=== PATIENT | female | born 1945 | race Caucasian/White ===

== ENCOUNTER 2020-09-27 11:58 | Inpatient (IN) | payer MEDICARE, OTHER ==
[~2020-09-27 11:58] MED LIST: LIDOCAINE 1% 10 ML VIAL INJ ONE; PROPOFOL 200 MG/20 ML VIAL IV ONE
[2020-09-27] MEDS ORDERED: SODIUM CHLORIDE 0.9% 1000ML 1,000 ML IVS ONE (13:14)
--- NOTE | 2020-09-27 13:19 | ED.PDOC ---
History of Present Illness - General Chief Complaint: GI Problem Stated Complaint: vomiting,weakness Time Seen by Provider: 09/27/20 12:50 Source: patient, family Exam Limitations: no limitations - History of Present Illness Initial Comments: 2 WKS EMESIS, ANOREXIA, WAKNESS, DEHYDRATED. POS FLATUS YESTERDAY BUT NONE TODAY. H/O MARI-EN-Y GASTRIC BYPASS 8 YRS AGO AND HAD A LOT OF COMPLICATIONS FROM IT. I SPOKE WITH DR. CORTES TODAY AND HE IS CONCERNED COULD BE BOWEL OBSTRUCTION. NO NAUSEA. NO ABD PAIN. NO APPETITE. HAD ABD PAIN SEP 23, BUT NONE SINCE. VOMITING BUT NO NAUSEA. IF SHE EATS, IT TRIGGERS EMESIS. INCREASING WEAKNESS FROM HER DECREASED PO. IS ABLE TO DRINK SIPS OF WATER. AT BASELINE, IS VERY HEALTHY. WORKS [employer] M[employer]. DR. CORTES'S [id number]-[id number]. Timing/Duration: constant Severity: moderate Improving Factors: nothing Worsening Factors: eating Associated Symptoms: loss of appetite, nausea/vomiting, weakness Allergies/Adverse Reactions: Allergies NO KNOWN ALLERGY Allergy (Verified 09/27/20 12:21) Home Medications: Ambulatory Orders Cephalexin 500 mg PO QID 09/27/20 Hydrochlorothiazide 25 mg PO DAILY 09/27/20 amLODIPine BESYLATE [Norvasc] 5 mg PO BID 09/27/20 tiZANidine [Zanaflex] 4 mg PO TID PRN 09/27/20 Review of Systems - Review of Systems Constitutional: Denies: chills, fever EENTM: States: no symptoms reported Respiratory: Denies: cough, short of breath Cardiology: Denies: chest pain, palpitations Gastrointestinal/Abdominal: States: vomiting. Denies: abdominal pain, constipation, diarrhea, nausea Genitourinary: Denies: dysuria, frequency Musculoskeletal: Denies: back pain, neck pain Neurological: States: no symptoms reported Endocrine: States: no symptoms reported Hematologic/Lymphatic: States: no symptoms reported All other Systems: Reviewed and Negative Past Medical History (General) - Patient Medical History Hx Stroke: No Hx Congestive Heart Failure: No Hx Hypertension: Yes Hx Diabetes: No Surgical History: gastric bypass, Hysterectomy - Vaccination History Hx Influenza Vaccination: Yes Hx Pneumococcal Vaccination: Yes - Social History Hx Tobacco Use: No Family Medical History - Family History Mother Family History: Unknown Living Status: Unknown Physical Exam - Physical Exam General Appearance: Alert, Other - FATIGUED APPEARANCE. Eye Exam: bilateral normal Ears, Nose, Throat: normal ENT inspection, normal pharynx Neck: full range of motion, normal inspection Respiratory: lungs clear, normal breath sounds, no respiratory distress, no accessory muscle use Cardiovascular/Chest: regular rate, rhythm, no murmur Peripheral Pulses: radial,right: 1+, radial,left: 1+ Gastrointestinal/Abdominal: normal bowel sounds - IN ALL 4 QUADRANTS. , soft, no organomegaly, no pulsatile mass, other - MILDLY TTP IN EPIGASTRIC. Rectal Exam: deferred Back Exam: normal inspection, no CVA tenderness Extremity: normal inspection, no pedal edema, no calf tenderness Neurologic: alert, normal mood/affect, oriented x 3 Skin Exam: normal color, warm/dry Lymphatic: no adenopathy Progress - Progress Progress: 09/27/20 15:39 CT PENDING. ABD PAIN RETURNED SINCE DRINKING CONTRAST (NO NAUSEA) THUS WILL GIVE REPEAT DIALUDID 0.5 MG DOSE. 09/27/20 19:53 PT ADMITTED TO [facility] AND DR. ARORA GEN SURGERY IS CONSULTING. WILL NEED ADMISSION FOR IVF, PAIN CONTROL. 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 NO OBSTRUCTION. ANEMIA - HGB 9.7 (WAS 10.7 SEP 23). COVID NEG. THANK YOU, DR. CORTES, DR. ARORA, AND STEPHANIE NAVARRETE, FOR FACILITATING AND ACCEPTING FURTHER CARE OF OUR PATIENT. 09/27/20 19:58 - Results/Orders Results/Orders: SINCE DRANK THE CONTRAST, SHE IS NOW HAVING ABD PAIN. GIVING DILAUDID. Departure - Departure Clinical Impression: Fistula of small intestine, Anorexia, Weakness, Dehydration, H/O gastric bypass Anemia Qualifiers: Anemia type: unspecified type Qualified Code(s): D64.9 - Anemia, unspecified Emesis Qualifiers: Vomiting type: unspecified Vomiting Intractability: non-intractable Nausea presence: without nausea Qualified Code(s): R11.11 - Vomiting without nausea Disposition: Admit Patient Condition: Good Departure Forms: ED Discharge - Pt. Copy, Patient Portal Self Enrollment Referrals: Alan Gonzales MD [Primary Care Provider] - 1-2 Weeks Home Medications: Ambulatory Orders Cephalexin 500 mg PO QID 09/27/20 Hydrochlorothiazide 25 mg PO DAILY 09/27/20 amLODIPine BESYLATE [Norvasc] 5 mg PO BID 09/27/20 tiZANidine [Zanaflex] 4 mg PO TID PRN 09/27/20 Decision To Admit - Decistion To Admit Decision to Admit Reason: Admit from ER Decision to Admit Date: 09/27/20 Decision to Admit Time: 18:00
[2020-09-27] MEDS ORDERED: HYDROmorphone HCL INJ 2 MG/ML VIAL IV ONE ×3 (14:04→20:09)
--- NOTE | 2020-09-27 17:24 | CT ---
EXAM DESCRIPTION: Abdomen/Pelvis w/Contrast: Computed Tomography. CLINICAL HISTORY: 75 years Female 2 WKS EMESIS, ANOREXIA. NO FLATUS. GASTRIC BYPASS. COMPARISON: None. TECHNIQUE: Spiral-axial scans at 5 x 5 mm intervals through the abdomen and pelvis, after nonionic IV contrast and water-soluble oral contrast. Coronal and sagittal 2.0 mm reconstructions. No delayed scans. No adverse reactions. Total Exam DLP: 1013 mGy-cm. This exam was performed according to our departmental dose-optimization program which includes automated exposure control, adjustment of the mA and/or kV according to patient size and/or use of iterative reconstruction technique; to reduce radiation dose to as low as reasonably achievable (ALARA). FINDINGS: Lung bases and pleura: Bilateral posterior dependent basilar atelectasis. No acute pleural process or consolidation. Liver, Stomach, Spleen, Adrenal Glands: Small hiatal hernia. Circumferential suturing around the superior fundus with oral contrast in the lumen. This communicates with a loop of jejunum inferiorly and anteriorly to the upper fundus and this loop of small bowel remains adjacent to the anterior anterior abdominal wall. Minimal oral contrast enters the fluid-filled moderately distended inferior fundus and body of the stomach (pouch) which communicates with the antrum and pylorus. Air-fluid level in the duodenal bulb. A segment of jejunum containing dense oral contrast may be communicating with the inferior aspect of the distended pouch, via possible fistula. This segment also communicates with the duodenum. The proximal jejunum from the bypass does not contain a significant amount of oral contrast. It is not obstructed. The jejunal segment with dense oral contrast, does not appear obstructed and communicates with the remainder of the jejunum, also demonstrated by dense oral contrast, which continues through the jejunum into the ileum, ileocecal valve, cecum, and ascending colon. Pancreas, Gallbladder, Ducts: Gallbladder slightly distended with dependent, minimally radiodense stones. Common bile duct not distended. Fatty pancreas with small cystlike region 1 cm in the pancreatic head. Pancreatic duct not dilated. No inflammatory changes around the pancreas. Kidneys and Ureters: Unremarkable. Mesentery: No ascites, no fluid in the pelvic cul-de-sac or other free fluid and no free intraperitoneal air. No fatty stranding. Aorta: Moderate atherosclerotic calcifications proximally 2.0 x 2.1 cm, and distal luminal narrowing. Calcifications in narrowing extending to the proximal common iliac arteries bilaterally. Minimal atherosclerotic calcification in the major branch vessels. Small Bowel: See above. No significant distention in the mid or distal jejunum or ileum. Terminal Ileum/Cecum: Normal caliber of the terminal ileum which contains oral contrast. Cecum oral contrast and gas in the minimally distended cecum. Colon: Ascending colon minimally distended by gas fecal material and oral contrast with distended air-fluid level in the hepatic flexure. The transverse colon distal to this distended hepatic flexure is decompressed with intermittent minimal gaseous distention. Minimal oral contrast in the remainder of the colon which is decompressed. Moderate redundancy of the sigmoid colon with no complications. Pelvic Organs: Urinary bladder is distended with no radiodense stones. Vaginal cuff unremarkable. No free fluid in the pelvis. No fatty stranding or mass. Spine and Bony Pelvis: Spondylosis extensive throughout the disc space at almost every lumbar level except for L5-S1 on the right, and spondylosis also in the included thoracic segments with levoscoliosis. Decreased bone density. Bilateral SI joint arthrosis and bilateral SI joint arthrosis. Abdominal Wall/Back Soft Tissues: Umbilical diastases not containing bowel. Small inguinal nodes bilaterally. IMPRESSION: 1. The distal fundus and the remainder of the stomach are distended by fluid with minimal oral contrast. The proximal fundus is anastomosed to a loop of jejunum, but a second segment of jejunum is partially distended with oral contrast. No obstruction is seen but there is question of a fistula. No perforation, no abscess, no free air or free fluid. The exact nature of this complication may be better evaluated by fluoroscopic guided upper GI contrast examination and small bowel follow-through. Consider surgical consultation. 2. Distention of the hepatic flexure of the colon with contrast and gas with transition point to decompressed proximal transverse colon. No definite mass, but consider follow-up barium enema and/or colonoscopy. 3. Cholelithiasis. Focal dilated pancreatic duct in the pancreatic head versus small pseudocyst. No enlargement of the pancreas or peripancreatic masses or inflammatory changes. CRITICAL COMMUNICATION: The critical value was communicated directly by Dr. Ibarra via phone call, with Dr. Ernie Schaefer, at approximately 1621 hours, on September 27, 2020. Electronically signed by: Pancho Ibarra MD 09/27/2020 5:22 PM NURSING SURGICAL SERVICES DIRECTOR
--- NOTE | 2020-09-27 19:57 | HP ---
SUPERVISING PHYSICIAN: Justice Gorman MD CHIEF COMPLAINT: Abdominal pain. HISTORY OF PRESENT ILLNESS: Ms. Miranda is a 75 year-old female who has a history of a previous Delmis-en-Y gastric bypass 8 years previously and reportedly multiple complications since the surgery. She has been having on-and-off abdominal pains in the epigastric region with associated emesis and some anorexia and weakness. She has lost 38 pounds since January unintentionally. She notes that when she initially had her gastric bypass, she lost 135 pounds and only gained about 20 pounds back. She endorses that when she eats it triggers emesis and she has had increasing weakness due to her decreased p.o. intake. She was referred from the clinic by Dr. Schaefer for further workup with concerns for possible bowel obstruction. Her CT in the Emergency Room with oral contrast showed concerns for a possible fistula with recommendation of surgical consultation with a possible upper GI series. Dr. Heredia was consulted at that point and Dr. Heredia and Dr. Schaefer seen in consultation. The patient is going to be admitted with a requested consultation with Dr. Petit, GI specialist, who is planning to do an EGD in the morning. She is admitted in stable condition. PAST MEDICAL HISTORY: 1. Hypertension. PAST SURGICAL HISTORY: 1. Delmis-en-Y gastric bypass with multiple complications 8 years previously. 2. Hysterectomy. CURRENT MEDICATIONS: 1. Norvasc 5 mg b.i.d. 2. Zanaflex 4 mg b.i.d. 3. Hydrochlorothiazide 25 mg daily. ALLERGIES: No known drug allergies. FAMILY HISTORY: Noncontributory to current admission. SOCIAL HISTORY: The patient is , currently works as a [place] in [employer] in [place], [place]. She has no history of drinking alcohol or utilizing tobacco. REVIEW OF SYSTEMS: CONSTITUTIONAL: Aguila fevers, chills, has had some associated general malaise and unintentional weight loss, reportedly 38 pounds since January 2020. HEENT: Denies headaches. vision changes, sore throat. nasal congestion. CHEST: Denies wheezing or coughing, shortness of breath. HEART: Denies chest pain, palpitations, or syncopal episodes. ABDOMEN: As noted in history of present illness. Denies diarrhea or constipation, does have associated emesis but no actual nausea. GENITOURINARY: Denies dysuria, hematuria or polyuria. MUSCULOSKELETAL: Chronic back pain, denies neck pain. SKIN: Denies lesions, rashes, moles or unexplained changes. NEUROLOGIC: Denies ataxia, seizures, paresthesias or other focal neurological or sensory deficits. HEMATOLOGICAL: Denies unexplained bleeding, easy bruising or transfusion reactions. PHYSICAL EXAMINATION: VITAL SIGNS: Temperature 97.7, pulse 83, blood pressure 142/65, respirations 16, oxygen saturation 96% on room air at rest. GENERAL: The patient looks to be in no acute distress. She just got some Dilaudid, she is resting comfortably. She does look fatigued. HEENT: Tympanic membranes are clear bilaterally. Oropharynx is pink, moist without lesions. NECK: Full range of motion, no jugular venous distention, supple. CHEST: Lungs clear to auscultation bilaterally without rhonchi, rales, or wheezes. CARDIOVASCULAR: Regular rate and rhythm without appreciable murmurs, gallops, or rubs. ABDOMEN: Soft with tenderness noted on palpation to the epigastric region. No peritoneal signs, no rebound tenderness, no point tenderness. BACK: No CVA or vertebral tenderness. EXTREMITIES: Without cyanosis, clubbing, or edema. NEUROLOGIC: She is alert and oriented x 3. Cranial nerves II through XII grossly intact. SKIN: Warm, pink and dry. RECTAL: Exam deferred. LABORATORY: White count 11,000, hemoglobin 9.7, hematocrit 28.3, platelet count 550,000. Differential shows early left shift. Chemistries show sodium 134, potassium 3.3, creatinine 0.97, lactic acid normal 0.9. Liver functions showing to be within normal limits. Lipase less than 18. Urinalysis pending. MICROBIOLOGY: Nasal swab for Covid was negative. RADIOLOGY: Abdomen/pelvis CV with oral contrast shows possible fistula of the gastric bypass with some contrast in the jejunal segment, no obvious obstruction or abscess. ASSESSMENT: 1. Acute on chronic abdominal pain with concerns for complications of her gastric bypass with a developing fistula with noted oral contrast within the jejunal segment during a CT study with no obvious obstruction or abscess formation with a surgical and GI consultation pending. 2. Hypertension, controlled. 3. History of Delmis-en-Y gastric bypass 8 years previous with multiple complications. 4. Mild leukocytosis with no obvious signs of infection, probably demarginalization secondary to response and ongoing emesis. 5. Mild electrolyte imbalance including a hypokalemia, hyponatremia, probably due to poor oral intake and recent emesis. 6. Normocytic/normochromic anemia with patient having a history of gastric bypass. PLAN: Ms. Miranda is going to be admitted for both a surgical consultation and GI consultation. Dr. Heredia has seen the patient in the Emergency Room. Dr. Petit has requested EGD to be done in the morning. The OR crew has been notified of this. She will be kept overnight. Labs have been ordered. She will have Dilaudid for pain control. Zofran for any nausea. She will be on IV fluids. I would anticipate her length of stay to be at least 2 to 3 days. Until we can transition patient to outpatient management, we will continue to monitor and treat as needed. #[id number] [facility]
[2020-09-27] MEDS ORDERED: DEX 5% W/NACL 0.45% 1000ML 1,000 ML IVS PRN (20:14)
[2020-09-27] MEDS ORDERED: ONDANSETRON INJ 4 MG/2 ML VIAL IV PRN (20:14)
[2020-09-27] MEDS ORDERED: HYDROmorphone HCL INJ 2 MG/ML VIAL IV PRN (20:14)
[2020-09-27] MEDS ORDERED: PANTOPRAZOLE SODIUM IV 40 MG VIAL IV SCH (20:30)
[2020-09-27] MEDS ORDERED: DEX 5% W/NACL 0.45% 1000ML 1,000 ML IVS ONE (22:00)
[2020-09-27] MEDS ORDERED: diphenhydrAMINE HCL 50 MG/ML VIAL IV ONE (22:32)
--- NOTE | 2020-09-28 07:38 | RAD ---
2 Radiographs of the Abdomen. Indication: fu ct contrast Comparison: None. Impression: Previously ingested oral contrast reaches the rectum. Excreted contrast noted within the bladder. No free air identified. Atherosclerosis aorta. No signs of obstruction. Osteopenia. If this is a new finding, DEXA scan recommended as well as evaluation for possible osteoporosis treatment. Electronically signed by: Geo John MD 09/28/2020 7:36 AM [facility]
--- NOTE | 2020-09-28 07:58 | CONS ---
DATE OF CONSULTATION: 09/27/20 HISTORY OF PRESENT ILLNESS: The patient is a 75-year-old female who presented to the Emergency Room with two weeks of emesis, anorexia, weakness and dehydration. She had flatus yesterday. She denies hematemesis, hematochezia and melena. The patient states that when she eats, she immediately vomits. She is eight years status post a Delmis-en-Y gastric bypass performed in [place]. She had significant difficulties which included intensive care hospitalization for pulmonary complications, possibly aspiration. We have no records of these, but her granddaughter is to Dr. Schaefer and he has some knowledge of her medical history. She has done well with the bypass surgery from the weight loss point of view. MEDICATIONS: She currently takes hydrochlorothiazide and amlodipine for her blood pressure. PAST MEDICAL HISTORY: She does have reflux since her surgery, but not before. PAST SURGICAL HISTORY: She also underwent a hysterectomy. 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 She is . There is no history of tobacco use or alc abuse. REVIEW OF SYSTEMS: Unremarkable except as in the history of present illness. PHYSICAL EXAMINATION: GENERAL: The patient is awake, alert, in mild distress. VITAL SIGNS: The patient is currently afebrile, normotensive. HEENT: Sclerae nonicteric. NECK: Without adenopathy. BACK: Without CVA tenderness. CHEST: Equal breath sounds bilaterally. HEART: Regular rate and rhythm. ABDOMEN: Normal bowel sounds. There is mild tenderness in the epigastrium without mass. PELVIC/RECTAL: Deferred. EXTREMITIES: Without cyanosis, clubbing or edema. LABORATORY: White count 11,000 with 83% neutrophils. Hemoglobin 9.7. Platelet count 550,000. Chemistries show sodium 134, potassium 3.3, blood sugar 165, lipase less than 18. Liver functions within normal limits. No urine. RADIOLOGY: CT scan of the abdomen reveals three possible things. First of all is possible fistula involved with the Delmis-en-Y bypass, but no obstruction. There is dilation of the mid transverse colon with a transition point in the mid transverse colon. She has a mildly dilated biliary tree and cholelithiasis. IMPRESSION: 1. Status post Delmis-en-Y bypass with inability to eat and weight loss, no fever or chills. There are no signs of leak or abscess on CT scan. PLAN: Recommend NPO, IV rehydration. We will obtain a GI consultation if possible from Dr. Petit if he is in town. We will review the radiological studies in the morning with the radiologist and also repeat lab work. #[id number] [facility]
[2020-09-28] MEDS ORDERED: KCL IVS ONE (08:38)
[2020-09-28] MEDS ORDERED: D5 IVS ONE (08:38)
[2020-09-28] MEDS ORDERED: [UNRECOGNIZED DRUG - OTHER] IVS ONE (08:38)
[2020-09-28] MEDS: KCL 20MEQ/D5 1/2NS 1,000 ML IVS PRN ×2 (09:02→19:05)
--- NOTE | 2020-09-28 10:01 | CONS ---
DATE OF CONSULTATION: 09/28/20 GI CONSULTATION REFERRING PHYSICIAN: Unique Schaefer MD CHIEF COMPLAINT: Abdominal pain. HISTORY OF PRESENT ILLNESS: Ms. Miranda is a delightful 75-year-old woman who lives in [place], [place]. She is the [id number] of Dr. Schaefer here at [facility]. I am asked to see her because of significant abdominal pain for the last 2 weeks associated with nausea and vomiting and inability to keep solid foods down. The patient underwent gastric bypass surgery in December of 2011. She does not know exactly her preoperative weight, but it was over 200 pounds. She said she lost some weight and held steady for many years. However, beginning the second half 2019, she has been losing weight and thinks she has lost 38 pounds. She says her overall condition began to worsen in early April when she developed low back pain and pain down in her legs. She has been seen by physicians locally, near her home and in [place]. No surgical procedures have been done, but she has been treating the pain conservatively. On 07/06/20, she unfortunately fell forward and caught her weight with her hands and sprained both wrists badly. With these musculoskeletal pains, she has taken a lot of NSAIDs in the fall and winter. She developed symptoms suggestive of COVID in early August, but was tested and was negative. Unfortunately, around the middle of August, she started having significant epigastric pain and inability to keep solid foods down. Liquids and pills have stayed down, but not solid food. She has been to her local physician and to the Emergency Room in [place] and evidently a CT scan has been done and no diagnoses were made and per the patient, the CT scan looked okay. Throughout these symptoms, she denies any red blood per rectum, black tarry bowels, or any hematemesis. PAST MEDICAL HISTORY: Overall, she has been healthy from a cardiopulmonary standpoint. PAST SURGICAL HISTORY: 1. Gastric bypass surgery in 2011. She reports she has not had much in the way of any trouble since then. She has typical periodic restrictive symptoms, but nothing close to what has been happening in the last few weeks. No history of ulcers associated with her bypass. 2. Hysterectomy. SOCIAL HISTORY: No alcohol or tobacco use. REVIEW OF SYSTEMS: She denies chest pain, shortness of breath, orthopnea, PND, cough, fever, wheeze. PHYSICAL EXAMINATION: VITAL SIGNS: Blood pressure 130/70, heart rate 80 and regular. She is afebrile. GENERAL: She is alert and oriented. No distress whatsoever. She appears comfortable. HEENT: Pupils are equal, round, and reactive to light. Oropharynx is without any lesions. NECK: No jugular venous distention or lymphadenopathy. CHEST: Lungs clear to auscultation. HEART: Regular, S1, S2 without any murmur. ABDOMEN: Soft. There is tenderness to palpation in the epigastrium. There is no abdominal distension, no rebound or guarding, no hepatosplenomegaly or masses are noted. EXTREMITIES: No edema. SKIN: Warm and dry. There are decent distal peripheral pulses. NEUROLOGIC: Cranial nerves II-XII are grossly intact. PSYCHIATRIC: Again, she is alert and oriented. She has some mild memory loss of low details, but she is very in tune and on top of what has happened to her in the past year. IMPRESSION: 1. Epigastric pain, nausea and vomiting associated with lots of NSAID use over the last 6 months. 2. History of gastric bypass. I suspect with these symptoms that she has developed either a marginal jejunal ulcer or anastomotic ulcer related to the NSAID use. Another possibility is just gastrojejunal anastomotic stenosis. There was a CT scan done and there is contrast in the bypassed portion of the stomach suggesting perhaps a fistula between the bypassed portion and the remainder of the stomach. I do not think this is the cause of any of her symptoms, but certainly it needs to be investigated. RECOMMENDATION: Upper endoscopy today looking for ulcers or strictures or other pathology to account for the patient's pain, nausea and vomiting. #[id number] [facility]
--- NOTE | 2020-09-28 10:24 | OP ---
DATE OF PROCEDURE: 09/28/20 PREOPERATIVE DIAGNOSIS: 1. Abdominal pain, nausea and vomiting. POSTOPERATIVE DIAGNOSIS: 1. Functional gastrojejunal anastomotic stricture. 2. Large marginal jejunal ulcer. PROCEDURE: 1. Esophagogastroduodenoscopy plus biopsy. SURGEON: Miguel Petit MD. COMPLICATIONS: None apparent. BLOOD LOSS: None. MEDICATIONS: Monitored anesthesia care. DESCRIPTION OF PROCEDURE: Informed consent was obtained prior to sedation. The preprocedure cardiopulmonary assessment was satisfactory. The patient was placed in the left lateral decubitus position and was sedated. The tip of the Olympus esophagogastroduodenoscope was inserted in the oropharynx and carefully advanced through the cricopharyngeus into the esophageal lumen. The esophagus has just some very mild changes of esophagitis there at the GE junction. This is likely from the vomiting she has been having. Otherwise, the esophagus is unremarkable. The patient does have a very small hiatal hernia. The patient has undergone gastric bypass. She has a moderate sized gastric pouch. The staple line appears all intact and I see no fistula between the pouch the bypassed portion of the stomach. The patient's gastrojejunal anastomosis is very narrowed. It is no more than 1 cm in greatest diameter. It does allow the scope to go across it. It is very edematous and that is pretty much what is causing the narrowing. There is a very large marginal jejunal ulcer just past the anastomosis. It is likely 3 cm in greatest diameter. Once passed the ulcer, I examined the jejunal limb for about 50 cm and it is unremarkable. I pulled the scope back and looked for a fistulous connection at the site of the ulcer and the bypassed portion of the stomach. I do not see one, but I suspect there is one there I do not see since the patient does have oral contrast in the bypassed portion of the stomach seen on the CT scan. I withdrew the scope back to the gastric pouch and I took biopsies there with cold biopsy forceps looking for H. pylori. The procedure was then terminated. RECOMMENDATIONS: 1. Followup H. pylori pathology. 2. The patient can remain on liquid diet. She needs protein boosting. 3. Obviously, no more NSAIDs. 4. She will likely need a resection of this. We can try to treat it conservatively with high dose proton pump inhibitor and Carafate, but I am not optimistic that it is going to heal without surgical resection and revision of her bypass. #[id number] cc: Unique Schaefer MD [facility]
[2020-09-28] MEDS ORDERED: MAGNESIUM SULFATE PREMIX 2GM 50 ML IVPB ONE (10:30)
[2020-09-28] MEDS ORDERED: MAGNESIUM SULFATE PREMIX 2GM 2 GM in PREMIX BAG 1 BAG IVPB ONE (11:59)
[2020-09-28] MEDS: SUCRALFATE 1 GM/10 ML 1 GM UD PO SCH ×2 (16:29→20:43)
[2020-09-28] MEDS ORDERED: PANTOPRAZOLE SODIUM IV 40 MG VIAL ONE (19:23)
[2020-09-28] MEDS ORDERED: amLODIPine BESYLATE 5 MG TAB ONE (19:23)
--- NOTE | 2020-09-28 20:28 | PN ---
DATE: 09/28/2120 SUPERVISING PHYSICIAN: : Justice Gorman MD SUBJECTIVE: Dr. Petit did an EGD today, she tolerated this well and ultimately found out she has a functional gastrojejunal anastomotic stricture with a large jejunal ulcer. Dr. Petit recommended she be transitioned to a straight liquid diet and soft food as possible with protein supplementation. She is resting comfortably today. She is actually tolerating a little bit of fluids without any emesis today but she has been resting most of the day. Her pain has been well controlled. OBJECTIVE: VITAL SIGNS: Temperature 98.5, pulse 80, blood pressure 120/71, respirations 16, oxygen saturation 95% on room air. GENERAL: The patient is resting comfortably, does not look to be in any distress. She is alert. CHEST: Clear to auscultation. HEART: Regular rate and rhythm. ABDOMEN: Soft with some mild tenderness on palpation of the gastric region, no rebound tenderness, no peritoneal signs. Bowel sounds are active. EXTREMITIES: Without edema. NEUROLOGIC: She is alert and oriented x3. LABORATORY: White count 10,100, differential continues to be without a left shift. Hemoglobin 9.8, hematocrit 29.4 which is showing to be stable. Chemistries: Her potassium did drop a little bit to 2.8 as well as magnesium was down to 1.7. Otherwise, other electrolytes were within normal limits. Creatinine 0.72. RADIOLOGY: No additional radiographic studies. ASSESSMENT: 1. Chronic abdominal pain secondary to a functional gastrojejunal anastomotic stricture and a large jejunal ulcer. 2. Electrolyte imbalance in the form of hypokalemia, hypomagnesemia secondary to #1.and poor oral intake. 3. Hypertension, controlled. 4. Normocytic/normochromic anemia, chronic, in a patient with history of gastric bypass. PLAN: Please refer and cover Dr. Petit's note for full details of plan of care at this point. We will keep her overnight. I have ordered a nutritional consultation to assist in better meal planning in regard to the protein intake. She will be started on Protonix b.i.d. She will also be on Carafate q.i.d. She will be encouraged to take Boost or Ensure as tolerated as well as soft food like mashed potatoes as she can tolerate. She is absolutely not to have any NSAIDS. She is to followup with Dr. Petit in regard to the biopsy taken at her EGD as well as her primary care physician. We will keep her on IV fluids, replace her potassium as I don't think she can tolerate oral potassium at this point, as I have given her 2 grams of magnesium to replace her magnesium efforts to help better stabilize her potassium levels. She seems to be well hydrated, will encourage fluids. She will have pain management as needed. I anticipate she will be discharged tomorrow. I touched base with Dr. Schaefer in regard to ultimate plan of care if he is in contact with Dr. Petit in regard to what the plan is at discharge. Until we can transition her to outpatient management, which I anticipate would be tomorrow, September 29, we will continue to monitor and treat as needed #[id number] [facility]
[2020-09-28] MEDS: PANTOPRAZOLE SODIUM IV 40 MG VIAL IV SCH (20:43)
[2020-09-28] MEDS: amLODIPine BESYLATE 5 MG TAB PO SCH (20:43)
[2020-09-29] MEDS: KCL 20MEQ/D5 1/2NS 1,000 ML IVS PRN ×2 (04:56→16:34)
[2020-09-29] MEDS: SUCRALFATE 1 GM/10 ML 1 GM UD PO SCH ×4 (06:22→20:28)
[2020-09-29] MEDS: PANTOPRAZOLE SODIUM IV 40 MG VIAL IV SCH ×2 (08:51→20:28)
[2020-09-29] MEDS: amLODIPine BESYLATE 5 MG TAB PO SCH ×2 (08:51→20:29)
[2020-09-29] MEDS ORDERED: POTASSIUM CHLORIDE 20 MEQ TAB PO ONE (10:36)
--- NOTE | 2020-09-29 19:20 | PN ---
SUPERVISING PHYSICIAN: Justice Gorman MD DATE: 09/29/20 SUBJECTIVE: The patient is sitting up in bed. She was expected to go home, but after Dr. Heredia and I discussed her plan of care, I decided that she should stay overnight and should increase her protein intake including adding a protein drink to her diet. We discussed it at length. Initially, she was disappointed that she was not going home, but if she continues to improve, we will discharge her in the morning. Her family brought in high protein drinks that she likes. OBJECTIVE: VITAL SIGNS: Temperature 98.1, heart rate 76, blood pressure 135/66, respiratory rate 16, O2 saturation 96% on room air. RESPIRATORY: Essentially clear to auscultation bilaterally. CARDIAC: Regular rate and rhythm. GASTROINTESTINAL: Abdomen is soft, nondistended, slightly tender in the epigastric area. Bowel sounds are positive. NEUROLOGIC: Awake, alert and oriented times three. LABORATORY: Her sodium is 136, potassium 3.2, chloride 100. Calcium 8.4, magnesium 2.1. All other labs and films have been reviewed via the EMR. ASSESSMENT: 1. Chronic abdominal pain secondary to a functional gastrojejunal anastomotic stricture and a large jejunal ulcer. 2. Electrolyte imbalance in the form of hypokalemia, hypomagnesemia secondary to #1 and poor oral intake. 3. Hypertension, controlled. 4. Normocytic/normochromic anemia, chronic, in a patient with history of gastric bypass. PLAN: We will follow recommendations by Dr. Heredia. I have ordered protein drink supplements to her diet as recommended by Dr. Heredia and her family has brought in protein drinks that she likes. I have encouraged her to increase her protein intake. We will follow and treat as needed. [facility][id number] [facility]
[2020-09-30] MEDS: SUCRALFATE 1 GM/10 ML 1 GM UD PO SCH ×2 (06:33→12:15)
[2020-09-30] MEDS ORDERED: MAGNESIUM HYDROXIDE 30 ML UD PO ONE (08:39)
[2020-09-30] MEDS ORDERED: MAGNESIUM HYDROXIDE 30 ML UD ONE (09:20)
[2020-09-30] MEDS: amLODIPine BESYLATE 5 MG TAB PO SCH (09:43)
[2020-09-30] MEDS: PANTOPRAZOLE SODIUM IV 40 MG VIAL IV SCH (09:43)
[2020-09-30 14:43] VITALS: BP 114/63; TEMP 98.1; O2SAT 98
--- NOTE | 2020-10-05 09:23 | DS ---
SUPERVISING PHYSICIAN: Justice Gorman MD DISCHARGE DIAGNOSIS: 1. Chronic abdominal pain secondary to a functional gastrojejunal anastomotic stricture and a large jejunal ulcer. 2. Electrolyte imbalance in the form of hypokalemia, hypomagnesemia secondary to #1 and poor oral intake, improved. 3. Hypertension, controlled. 4. Normocytic/normochromic anemia, chronic, in a patient with history of gastric bypass. 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 She had multiple complications since the surgery. Abdominal pains have been on and off in the epigastric region with associated emesis, some anorexia and weakness. She has lost 38 pounds since January unintentionally. When she initially had her gastric bypass, she lost 135 pounds and only gained about 20 pounds back. When she eats, it triggers emesis and she has had increasing weakness due to her decreased oral intake. She was referred from the clinic by Dr. Schaefer for further workup with concerns for possible bowel obstruction. Her CT in the Emergency Room with oral contrast showed concerns for a possible fistula with recommendation of surgical consultation with a possible upper GI series. Dr. Heredia was consulted at that time and the patient was admitted with a request for consultation with Dr. Petit, GI specialist. She is admitted in stable condition with Dr. Petit planning to do an EGD the following morning. She was admitted in stable condition. HOSPITAL COURSE: The patient was admitted in stable condition. She had surgical consultation by Dr. Heredia and GI consultation per Dr. Petit. She was NPO, given Dilaudid for pain control as well as Zofran for emesis. She had IV fluids. The following morning, Dr. Petit did an EGD. He found a very large marginal jejunal ulcer just past the anastomosis from her previous gastric surgery. It is about 3 cm in diameter. The patient was placed on a proton pump inhibitor as well as Carafate. He felt that at some point she would need a resection of this area. Post procedure, we would treat her conservatively with high dose proton pump inhibitors and Carafate, but he felt she would need a revision of the bypass. She also received a dietary consultation and it was recommended that she have 90 grams of protein daily. Her diet was advanced to full liquids. She was also given supplements with high protein drinks. The patient was strongly encouraged to drink 5 protein drinks daily. She will be discharged home today in stable condition. LABORATORY: Initial WBCs 11,00 and today are 7,500. Hemoglobin and hematocrit have been stable at 9.9 and 28.9. Her electrolytes today are stable and within normal limits with the exception of her magnesium slightly low at 1.7 and calcium slightly low at 8.2. DISCHARGE PLAN: She is to continue with her high protein drinks and try to get 90 grams of protein daily. She is to get a followup appointment with Alan Gonzales MD, in 1 to 2 weeks as well as Dr. Petit within 2 weeks for recommended surgical consultation. In addition to her home medications, she is also to have sucralfate and pantoprazole. She is to return to the hospital or followup with Dr. Gonzales or Dr. Petit for any problems or complications. DISCHARGE MEDICATIONS: 1. Zanaflex. 2. Amlodipine. 3. Cephalexin. 4. Hydrochlorothiazide. 5. Sucralfate. 6. Pantoprazole. [id number]
== END 2020-09-30 11:30 | disposition home or self-care (01) | DRG 394 ==
LOC: ER 11:58 → OBSVTOIN 19:55 → MS 19:55
PROVIDERS: ADMIT Surgery; ATTEND Nurse Practitioner Acute Care
PROC: BW211ZZ Computerized Tomography (CT Scan) of Abdomen and Pelvis using Low Osmolar Contrast (ICD-10-PCS; principal; 2020-09-27)
PROC: 0DB68ZX Excision of Stomach, Via Natural or Artificial Opening Endoscopic, Diagnostic (ICD-10-PCS; 2020-09-28)
DX: K91.89 Other postprocedural complications and disorders of digestive system (principal); E87.1 Hypo-osmolality and hyponatremia; K95.89 Other complications of other bariatric procedure; K28.9 Gastrojejunal ulcer, unspecified as acute or chronic, without hemorrhage or perforation; E86.0 Dehydration; E87.6 Hypokalemia; E83.42 Hypomagnesemia; D64.9 Anemia, unspecified; G89.29 Other chronic pain; I10 Essential (primary) hypertension; K21.9 Gastro-esophageal reflux disease without esophagitis; Z98.84 Bariatric surgery status; Z87.440 Personal history of urinary (tract) infections; Z79.899 Other long term (current) drug therapy; Y83.2 Surgical operation with anastomosis, bypass or graft as the cause of abnormal reaction of the patient, or of later complication, without mention of misadventure at the time of the procedure; Y92.9 Unspecified place or not applicable